=== PATIENT | female | born 1935 | race Two or more races ===

== ENCOUNTER 2017-07-07 00:36 | Emergency (ER) | payer OTHER ==
--- NOTE | 2017-07-07 00:39 | EDPHY ---
H & P HPI/ROS: HPI CHIEF COMPLAINT: Right ear pain, bleeding HISTORY OF PRESENT ILLNESS: This patient very pleasant 82-year-old female, she presents emergency room after she states that she accidentally stuck the tip of her glasses into her right ear canal. She immediately had pain. This happened earlier today. States initially did not bleed but however this evening it started bleeding. She does have some mild pain to her right ear canal. Denies any other areas of injury. She states this was an accident. No ringing in her ears. No other areas of trauma. Past Medical History: Osteoarthritis Past Surgical History: Hip surgery Social History: Denies drugs alcohol tobacco products Family History: ROS REVIEW OF SYSTEMS: A comprehensive 10 point review of systems is otherwise negative aside from elements mentioned in the history of present illness. Exam Constitutional triage nursing summary reviewed, vital signs reviewed, awake/ alert. Eyes normal conjunctivae and sclera, EOMI, PERRLA. HENT left TM canal clear. Right TM full of blood. Cannot visualize TM. Most likely has a ruptured TM. Perforated. normal inspection, atraumatic, moist mucus membranes, no epistaxis, neck supple/ no meningismus, no raccoon eyes. Respiratory clear to auscultation bilaterally, normal breath sounds, no respiratory distress, no wheezing. Cardiovascular rate normal, regular rhythm, no murmur, no edema, distal pulses normal. Gastrointestinal soft, non-tender, no rebound, no guarding, normal bowel sounds, no distension, no pulsatile mass. Genitourinary no CVA tenderness. Musculoskeletal no midline vertebral tenderness, full range of motion, no calf swelling, no tenderness of extremities, no meningismus, good pulses, neurovascularly intact. Skin pink, warm, & dry, no rash, skin atraumatic. Neurologic awake, alert and oriented x 3, AAOx3, moves all 4 extremities equally, motor intact, sensory intact, CN II-XII intact, normal cerebellar, normal vision, normal speech. Psychiatric normal mood/affect. Heme/Lymph/Immune no lymphadenopathy. Differential Diagnosis: Includes but is not limited to in a particular order ear canal trauma, TM rupture, trauma to the TM. Perforated TM. Medical Decision Making: Plan for this patient she does have extensive allergies. I will placed on Keflex and [place] for pain control. I will refer her to ENT. Should call there in the morning for follow-up care. Additionally return emergency room if there is any worsening symptoms questions or concerns. Source: Patient - Medical/Surgical History Hx Asthma: No Hx Chronic Respiratory Disease: No Hx Diabetes: No Hx Cardiac Disease: No Hx Renal Disease: No Hx Cirrhosis: No Hx Alcoholism: No Hx HIV/AIDS: No Hx Splenectomy or Spleen Trauma: No Other PMH: HTN, gout and osteoarthritis, ELISABET, rtha, - Social History Smoking Status: Never smoked Constitutional: Initial Vital Signs Temperature (C) 36.6 C 07/07/17 00:42 Heart Rate 81 07/07/17 00:42 Respiratory Rate 18 07/07/17 00:42 Blood Pressure 187/76 H 07/07/17 00:42 O2 Sat (%) 96 07/07/17 00:42 O2 Delivery Mode Room Air Allergies/Adverse Reactions: celecoxib [From Celebrex] Allergy (Intermediate, Verified 05/30/15 14:20) Rash lisinopril Allergy (Intermediate, Verified 02/22/16 08:07) COUGH Penicillins Allergy (Verified 05/30/15 10:50) Rash Sulfa (Sulfonamide Antibiotics) Allergy (Verified 05/30/15 10:50) Rash Home Medications: Medication Instructions Recorded Cholecalciferol Vit D3 [Vitamin D3 2,000 units PO DAILY #0 cap 06/13/15 2000 units] Diazepam [Valium 5 MG (*)] 5 mg PO Q6 PRN #60 tab 06/13/15 Hydrochlorothiazide [HCTZ (*)] 12.5 mg PO HS #0 cap 06/13/15 Irbesartan [Avapro 150 mg (*)] 300 mg PO HS #0 tab 06/13/15 Nebivolol HCl [Bystolic 5 mg (*)] 20 mg PO HS #0 tab 06/13/15 Temazepam [Restoril 15 MG (*)] 15 mg PO HS PRN #0 cap 06/13/15 amLODIPine BESYLATE [Norvasc 5 mg 5 mg PO HS #0 tab 06/13/15 (*)] Acetaminophen [Tylenol 325mg (*)] 350 mg PO Q4-6PRN PRN 02/25/16 Allopurinol [Allopurinol 300 MG 300 mg PO DAILY 02/25/16 (RX)] [place] 100mg 1 each PO DAILY PRN 02/25/16 Simvastatin [Zocor] 20 mg PO HS 02/25/16 Aspirin [Aspirin 325 mg (*)] 325 mg PO DAILY #0 tab 02/27/16 traMADol [Ultram 50 mg (*)] 50 - 100 mg PO Q6H PRN #80 tab 02/27/16 Cephalexin [Keflex (*)] 500 mg PO Q6H #28 cap 07/07/17 Hydrocodone/APAP 5/325 [[place] 1 - 2 tab PO Q6H PRN #20 tab 07/07/17 5/325 (*)] Departure - Departure Disposition: Home, Routine, Self-Care Clinical Impression: Ruptured eardrum Qualifiers: Laterality: right Qualified Code(s): H72.91 - Unspecified perforation of tympanic membrane, right ear Condition: Good Instructions: Ruptured Eardrum (ED) Referrals: Elizabeth Jordan MD [Primary Care Provider] - As per Instructions Simon Garcia MD [Medical Doctor] - As per Instructions Prescriptions: Cephalexin [Keflex (*)] 500 mg PO Q6H #28 cap Hydrocodone/APAP 5/325 [[place] 5/325 (*)] 1 - 2 tab PO Q6H PRN #20 tab PRN Reason: Pain, Mild
[2017-07-07 00:45] VITALS: BP 187/76; PULSE 81; RESP 18; TEMP 97.9; O2SAT 96
[2017-07-07] MEDS ORDERED: CEPHALEXIN 500MG PREPACK#4 BTL TAKEHOME ONE (00:49)
[2017-07-07] MEDS ORDERED: HYDROCOD/APAP 5/325 PREPACK#6 BTL TAKEHOME ONE (00:49)
[2017-07-07] MEDS ORDERED: CEPHALEXIN 500 MG CAP PO ONE (00:50)
== END 2017-07-07 01:15 | disposition home or self-care (01) ==
DX: H72.91 Unspecified perforation of tympanic membrane, right ear (principal); I10 Essential (primary) hypertension; Z79.82 Long term (current) use of aspirin; W25.XXXA Contact with sharp glass, initial encounter